=== PATIENT | female | born 1950 | race African-American/Black ===

== ENCOUNTER 2017-07-22 12:15 | Outpatient (CLI) | payer MEDICARE, MEDICAID ==
[2017-07-22 12:22] LABS: #Eosinphils 0.2 thou/uL (0.0-0.7); #Lymphocytes 2.8 thou/uL (1.20-3.40); #Monocytes 0.3 thou/uL (0.11-0.59); #Neutrophils 3.9 thou/uL (1.40-6.50); %Basophils 0.3 % (0.0-1.0); %Eosinophils 2.5 % (0.0-10.0); %Lymphocytes 38.9 % (21.0-51.0); %Monocytes 4.5 % (0.0-10.0); Mean Platelet Volume 7.7 fL (7.4-10.4); Red Blood Cell (RBC) Count 4.23 mill/uL (4.20-5.40); White Blood Cell (WBC) Count 7.3 thou/uL (4.8-10.8)
[2017-07-22 12:43] LABS: ALT (SGPT) 10 U/L (8-55); AST (SGOT) 12 U/L (5-34); Alkaline Phosphatase 120 U/L (40-150); Anion Gap 10 mmol/L (10-20); BUN (Urea Nitrogen) 15 mg/dL (9.8-20.1); Bilirubin, Total 0.4 mg/dL (0.2-1.2); Calc. Creatinine Clearance 0 mL/min (70-130); Calcium 9.3 mg/dL (7.8-10.44); Carbon Dioxide 30 mmol/L (23-31); Chloride 106 mmol/L (98-107); Estimated GFR-MDRD 52; Protein, Total 7.8 g/dL (6.0-8.3)
== END 2017-07-22 12:16 | disposition home or self-care (01) ==
LOC: LABBT 12:15
PROVIDERS: ATTEND Surgery
DX: Z01.812 Encounter for preprocedural laboratory examination (principal); K43.2 Incisional hernia without obstruction or gangrene
CPT/HCPCS: 80053; 85025; 93005; 93010

== ENCOUNTER 2017-07-27 07:30 | Day surgery (SDC) | payer MEDICARE, MEDICAID ==
[2017-07-22 11:08] VITALS: BMI 47.0
[2017-07-27] MEDS ORDERED: CEFAZOLIN/Water 2 GM/20 ML SYRINGE ONE (09:30)
[2017-07-27] MEDS ORDERED: Bupivacaine/Epinephrine 0.25% 30 ML VIAL ONE (09:39)
[2017-07-27] MEDS ORDERED: Fentanyl 100 MCG/2 ML VIAL ONE ×2 (09:45→12:09)
[2017-07-27] MEDS ORDERED: Midazolam HCl 2 mg/2 ml Vial ONE (09:45)
[2017-07-27] MEDS ORDERED: Fentanyl 250 MCG/5 ML VIAL ONE (09:45)
[2017-07-27] MEDS ORDERED: Albuterol Sulfate HFA (OR ONLY) ONE (10:13)
[2017-07-27] MEDS ORDERED: Promethazine HCl 25 MG/ML VIAL SLOW IVP PRN (10:40)
[2017-07-27] MEDS ORDERED: Meperidine HCl/PF 25 MG/ML VIAL SLOW IVP PRN (10:40)
[2017-07-27] MEDS ORDERED: Morphine 4 MG/ML VIAL ONE (14:17)
[2017-07-27] MEDS ORDERED: HYDROcodone/Acetaminophen 5/325 mg Tablet ONE (15:21)
[2017-07-27] MEDS ORDERED: Ondansetron HCl/PF 4 MG/2 ML Vial ONE (16:44)
[2017-07-27] MEDS ORDERED: Lidocaine 1% PF 5 ML VIAL ONE (16:44)
[2017-07-27] MEDS ORDERED: PHENYLEPHRINE-NS 100 MCG/ML 10 ML SYRINGE ONE (16:44)
[2017-07-27] MEDS ORDERED: Glycopyrrolate 0.2 MG/ML 5 ML SYRINGE ONE (16:44)
[2017-07-27] MEDS ORDERED: Propofol 200 MG/20 ML VIAL ONE (16:44)
[2017-07-27] MEDS ORDERED: Dexamethasone 20 MG/5 ML VIAL ONE (16:44)
--- NOTE | 2017-07-28 13:40 | OP ---
DATE OF PROCEDURE: 07/27/2017 PREOPERATIVE DIAGNOSIS: Ventral incisional hernia. POSTOPERATIVE DIAGNOSIS: Ventral incisional hernia. PROCEDURE: Laparoscopic [place] robot incisional hernia repair with mesh. SURGEON: Abdoulaye Burch M.D. ANESTHESIA: General. ESTIMATED BLOOD LOSS: Minimal. COMPLICATIONS: None. SPECIMEN: None. TECHNIQUE: The patient was taken to the operating room and placed supine on the table. After genera l anesthetic was obtained, a Espino was placed. The abdomen was shaved, prepped and draped in a steri le fashion. Left subcostal 12 mm Ethicon Optiview trocar was placed without injury and high-flow pne umoperitoneum was obtained. Left and right subcostal 8 mm robot trocars were placed under direct vis ualization. All ports were docked to the robot. Surgeon then goes to the console. The peritoneum w as opened starting at the 12 o'clock position and taken down to expose the posterior fascia. There we re 3 incisional hernias all within a row near the umbilicus. After the peritoneum was taken down all the way around to fully expose the fascia, an 0 V-Loc suture was used to close the fascia in a runni ng vertical nature. This completely closed the fascial defect. Next, a 9 cm Medtronic mesh was brou ght into the sterile field. It was hydrated, rolled, and placed in the abdominal cavity. The nonadh erent barrier was left down. The polypropylene was placed up against the posterior fascia. A bi-dir ectional double-armed Stratafix suture was used to sew it circumferentially all the way around to the posterior fascia. All needles were removed from the abdomen. All port sites were infiltrated using a local anesthetic. There is no ongoing bleeding in the abdomen. There is no injury to any intraab dominal structures. All port sites were infiltrated using local anesthetic and removed under direct visualization without bleeding. Pneumoperitoneum was let down. Vicryl had been used to close the fa scial defect at the 12-mm port site. Incisions were irrigated and closed using 4-0 Monocryl and Derm abond. The patient was en route to recovery in stable condition. All instrument counts, needle coun ts, and lap counts were correct.
== END 2017-07-27 16:08 | disposition home or self-care (01) ==
LOC: SDC 07:30
PROVIDERS: ATTEND Surgery
PROC: 0WUF4JZ Supplement Abdominal Wall with Synthetic Substitute, Percutaneous Endoscopic Approach (ICD-10-PCS; principal; 2017-07-27)
PROC: 8E0W4CZ Robotic Assisted Procedure of Trunk Region, Percutaneous Endoscopic Approach (ICD-10-PCS; 2017-07-27)
DX: K43.2 Incisional hernia without obstruction or gangrene (principal); E11.9 Type 2 diabetes mellitus without complications; E66.01 Morbid (severe) obesity due to excess calories; Z68.42 Body mass index [BMI] 45.0-49.9, adult; E03.9 Hypothyroidism, unspecified; M19.90 Unspecified osteoarthritis, unspecified site; Z79.4 Long term (current) use of insulin; Z79.82 Long term (current) use of aspirin; Z79.899 Other long term (current) drug therapy
CPT/HCPCS: 36416; 96374; J0131; J1100; J2001; J2250; J2270; J2405; J2704; J3010; J7620

== ENCOUNTER 2018-09-05 15:45 | Outpatient (CLI) | payer MEDICARE, OTHER | END 2018-09-05 15:46 | disposition home or self-care (01) | LOC: BICMAMMO 15:45 | PROVIDERS: ATTEND Family Medicine | DX: Z12.31 Encounter for screening mammogram for malignant neoplasm of breast (principal); R92.1 Mammographic calcification found on diagnostic imaging of breast | CPT/HCPCS: 77063; 77067 ==

== ENCOUNTER 2018-10-17 11:21 | Outpatient (CLI) | payer MEDICARE, OTHER ==
--- NOTE | 2018-10-17 14:49 | BD ---
DEXA BONE DENSITY STUDY: HISTORY: Postmenopausal. RIGHT FOREARM BMD (g/cm2) T-SCORE ONE-THIRD 0.717 +0.4 MID 0.560 -0.9 ULNAR DISTAL 0.387 -1.0 TOTAL 0.550 -0.5 LEFT FOREARM ULNAR DISTAL 0.469 +0.5 MID 0.620 +0.2 ONE THIRD 0.709 +0.2 TOTAL 0.597 +0.3 IMPRESSION: Normal bone mineral density of the forearms. POS: [facility]
== END 2018-10-17 11:22 | disposition home or self-care (01) ==
LOC: BICMAMMO 11:21
PROVIDERS: ATTEND Family Medicine
DX: Z13.820 Encounter for screening for osteoporosis (principal); M85.831 Other specified disorders of bone density and structure, right forearm
CPT/HCPCS: 77080

== ENCOUNTER 2018-10-31 14:49 | Emergency (ER) | payer MEDICARE, OTHER ==
[2018-10-31 15:28] LABS: #Eosinphils 0.3 thou/uL (0.0-0.7); #Lymphocytes 3.4 thou/uL (1.20-3.40); #Monocytes 0.5 thou/uL (0.11-0.59); #Neutrophils 4.2 thou/uL (1.40-6.50); %Basophils 0.6 % (0.0-1.0); %Eosinophils 3.4 % (0.0-10.0); %Lymphocytes 40.4 % (21.0-51.0); %Monocytes 5.7 % (0.0-10.0); Hemoglobin 12.9 g/dL (12.0-16.0); Mean Corpuscular HGB CONC 29.6 g/dL (32.0-36.0); Mean Corpuscular Hemoglobin 26.3 pg (27.0-31.0); Mean Corpuscular Volume 88.9 fL (78.0-98.0); Mean Platelet Volume 8.9 fL (7.4-10.4); Platelet Count 215 thou/uL (130-400); RBC Distribution Width 14.4 % (11.5-14.5); Red Blood Cell (RBC) Count 4.93 mill/uL (4.20-5.40); White Blood Cell (WBC) Count 8.4 thou/uL (4.8-10.8)
--- NOTE | 2018-10-31 15:37 | RAD ---
PREMA CHEST: Date: 10/31/18 HISTORY: Chest pain. FINDINGS: Lung aceves are clear. Heart and mediastinum unremarkable. IMPRESSION: No acute findings. POS: [facility]
[2018-10-31 15:41] LABS: Hypochromia SLIGHT = 6-15 cells (100X) (0-5/hpf); MDiff Complete? YES; Platelet Morphology Comment Appears Adequate
[2018-10-31 15:56] LABS: ALT (SGPT) 9 U/L (8-55); AST (SGOT) 13 U/L (5-34); Albumin 4.1 g/dL (3.4-4.8); Alkaline Phosphatase 125 U/L (40-150); Anion Gap 15 mmol/L (10-20); BUN (Urea Nitrogen) 17 mg/dL (9.8-20.1); Bilirubin, Total 0.6 mg/dL (0.2-1.2); CK (CPK) 111 U/L (29-168); Calc. Creatinine Clearance 0 mL/min (70-130); Calcium 9.7 mg/dL (7.8-10.44); Carbon Dioxide 32 mmol/L (23-31); Chloride 98 mmol/L (98-107); Estimated GFR-MDRD 40; Globulin 3.3 g/dL (2.4-3.5); Glucose 240 mg/dL (80-115); Potassium 3.7 mmol/L (3.5-5.1); Protein, Total 7.4 g/dL (6.0-8.3); Sodium 141 mmol/L (136-145)
== END 2018-10-31 15:59 | disposition home or self-care (01) ==
LOC: ERS 14:49
DX: R07.89 Other chest pain (principal); I10 Essential (primary) hypertension; E11.9 Type 2 diabetes mellitus without complications; F32.9 Major depressive disorder, single episode, unspecified; Z79.899 Other long term (current) drug therapy; Z79.4 Long term (current) use of insulin
CPT/HCPCS: 36415; 71045; 80053; 82550; 84484; 85025; 93005

== ENCOUNTER 2018-11-21 19:30 | Outpatient (CLI) | payer MEDICARE, OTHER | END 2018-11-21 19:31 | disposition home or self-care (01) | LOC: SLEEPLAB 19:30 | PROVIDERS: ATTEND Family Medicine | DX: G47.33 Obstructive sleep apnea (adult) (pediatric) (principal); R53.83 Other fatigue; E66.9 Obesity, unspecified; R06.83 Snoring; F41.8 Other specified anxiety disorders; I10 Essential (primary) hypertension; I25.10 Atherosclerotic heart disease of native coronary artery without angina pectoris; E11.9 Type 2 diabetes mellitus without complications | CPT/HCPCS: 95810 ==

== ENCOUNTER 2019-01-09 20:30 | Outpatient (CLI) | payer MEDICARE, MEDICAID | END 2019-01-09 20:31 | disposition home or self-care (01) | LOC: SLEEPLAB 20:30 | PROVIDERS: ATTEND Family Medicine | DX: G47.33 Obstructive sleep apnea (adult) (pediatric) (principal); G47.00 Insomnia, unspecified; R53.83 Other fatigue; F32.9 Major depressive disorder, single episode, unspecified; R06.83 Snoring; F41.9 Anxiety disorder, unspecified; I10 Essential (primary) hypertension; I25.10 Atherosclerotic heart disease of native coronary artery without angina pectoris; E11.9 Type 2 diabetes mellitus without complications; I49.3 Ventricular premature depolarization; E66.9 Obesity, unspecified; Z68.42 Body mass index [BMI] 45.0-49.9, adult | CPT/HCPCS: 95811 ==

== ENCOUNTER 2019-07-12 12:26 | Emergency (ER) | payer MEDICARE, MEDICAID ==
[2019-07-12 13:08] LABS: #Basophils 0.1 thou/uL (0.0-0.2); #Lymphocytes 2.2 thou/uL (1.20-3.40); #Monocytes 0.5 thou/uL (0.11-0.59); #Neutrophils 4.9 thou/uL (1.40-6.50); %Basophils 0.7 % (0.0-1.0); %Eosinophils 11.8 % (0.0-10.0); %Lymphocytes 25.4 % (21.0-51.0); %Monocytes 5.5 % (0.0-10.0); %Neutrophils 56.7 % (42.0-75.0); Hemoglobin 12.1 g/dL (12.0-16.0); Mean Corpuscular HGB CONC 31.2 g/dL (32.0-36.0); Mean Corpuscular Hemoglobin 27.8 pg (27.0-31.0); Mean Platelet Volume 8.4 fL (7.4-10.4); Platelet Count 207 thou/uL (130-400); RBC Distribution Width 13.8 % (11.5-14.5); Red Blood Cell (RBC) Count 4.37 mill/uL (4.20-5.40); White Blood Cell (WBC) Count 8.6 thou/uL (4.8-10.8)
[2019-07-12 13:37] LABS: ALT (SGPT) 14 U/L (8-55); AST (SGOT) 14 U/L (5-34); Albumin 3.9 g/dL (3.4-4.8); Alkaline Phosphatase 121 U/L (40-110); Anion Gap 11 mmol/L (10-20); BUN (Urea Nitrogen) 13 mg/dL (9.8-20.1); Bilirubin, Total 0.6 mg/dL (0.2-1.2); Calc. Creatinine Clearance 0 mL/min (70-130); Calcium 9.3 mg/dL (7.8-10.44); Carbon Dioxide 31 mmol/L (23-31); Chloride 104 mmol/L (98-107); Estimated GFR-MDRD 58; Globulin 3.7 g/dL (2.4-3.5); Glucose 286 mg/dL (80-115); Potassium 3.5 mmol/L (3.5-5.1); Protein, Total 7.6 g/dL (6.0-8.3); Sodium 142 mmol/L (136-145)
--- NOTE | 2019-07-12 14:30 | RAD ---
PA AND LATERAL CHEST: HISTORY: Chest pain. COMPARISON: 10/31/2018 FINDINGS: The heart size is normal. The lungs are expanded without focal areas of consolidation, pneumothoraces or pleural effusions. A small calcified granuloma in the right lower lung is again noted. There are degenerative changes in the spine. IMPRESSION: No radiographic evidence of acute cardiopulmonary process. POS: [facility]
== END 2019-07-12 17:15 | disposition home or self-care (01) ==
LOC: ERS 12:26
DX: J20.9 Acute bronchitis, unspecified (principal); E11.9 Type 2 diabetes mellitus without complications; I10 Essential (primary) hypertension; I25.10 Atherosclerotic heart disease of native coronary artery without angina pectoris; E03.9 Hypothyroidism, unspecified; Z79.4 Long term (current) use of insulin; Z79.899 Other long term (current) drug therapy
CPT/HCPCS: 36415; 71046; 80053; 85025; 87804; 94640; J7620

== ENCOUNTER 2019-07-14 05:12 | Inpatient (IN) | payer MEDICARE, MEDICAID ==
[2019-07-14] MEDS ORDERED: Albuterol Sulfate 2.5 mg/0.5 ml Neb ONE (05:58)
[2019-07-14] MEDS ORDERED: Albuterol Sulfate 1.25 MG/3 ML NEB ONE (06:41)
[2019-07-14] MEDS ORDERED: Albuterol Sulfate 2.5 mg/3 ml Neb ONE (06:49)
[2019-07-14] MEDS ORDERED: methylPREDNISolone Sod Succ/PF 125 MG/2 ML VIAL ONE (06:57)
[2019-07-14] MEDS ORDERED: Magnesium 2 GM/50 ML BAG (IN WATER) ONE (06:57)
[2019-07-14 07:26] LABS: #Basophils 0.1 thou/uL (0.0-0.2); #Eosinphils 0.9 thou/uL (0.0-0.7); #Lymphocytes 3.3 thou/uL (1.20-3.40); #Monocytes 0.7 thou/uL (0.11-0.59); #Neutrophils 6.6 thou/uL (1.40-6.50); %Basophils 0.6 % (0.0-1.0); %Eosinophils 8.1 % (0.0-10.0); %Lymphocytes 28.6 % (21.0-51.0); %Monocytes 6.1 % (0.0-10.0); %Neutrophils 56.6 % (42.0-75.0); Hemoglobin 12.2 g/dL (12.0-16.0); Mean Corpuscular Hemoglobin 27.8 pg (27.0-31.0); Mean Corpuscular Volume 89.6 fL (78.0-98.0); Mean Platelet Volume 8.3 fL (7.4-10.4); Platelet Count 239 thou/uL (130-400); RBC Distribution Width 13.9 % (11.5-14.5); Red Blood Cell (RBC) Count 4.38 mill/uL (4.20-5.40); White Blood Cell (WBC) Count 11.6 thou/uL (4.8-10.8)
[2019-07-14 07:40] LABS: ALT (SGPT) 14 U/L (8-55); AST (SGOT) 19 U/L (5-34); Alkaline Phosphatase 124 U/L (40-110); Anion Gap 12 mmol/L (10-20); BUN (Urea Nitrogen) 10 mg/dL (9.8-20.1); Bilirubin, Total 0.5 mg/dL (0.2-1.2); Calc. Creatinine Clearance 0 mL/min (70-130); Calcium 9.3 mg/dL (7.8-10.44); Carbon Dioxide 30 mmol/L (23-31); Chloride 104 mmol/L (98-107); Estimated GFR-MDRD 68; Globulin 3.8 g/dL (2.4-3.5); Glucose 118 mg/dL (80-115); Potassium 3.1 mmol/L (3.5-5.1); Protein, Total 7.8 g/dL (6.0-8.3); Sodium 143 mmol/L (136-145)
--- NOTE | 2019-07-14 07:56 | RAD ---
RADIOGRAPH CHEST 2 VIEWS: DATE: 07/14/2019 HISTORY: 69-year-old female with dyspnea FINDINGS: There is no airspace density, pulmonary edema, pleural effusion, pneumothorax, or cardiomegaly. IMPRESSION: No acute cardiopulmonary findings.
[2019-07-14 08:01] LABS: CKMB 4.3 ng/mL (0-6.6)
[2019-07-14] MEDS ORDERED: Furosemide 20 MG/2 ML VIAL ONE (08:17)
[2019-07-14] MEDS ORDERED: Nitroglycerin 2% Ointment 1 INCH/1 GM Packet ONE (08:17)
[2019-07-14] MEDS ORDERED: Aspirin Chewable 81 MG TAB ONE (09:37)
[2019-07-14 10:07] VITALS: BMI 45.8
[2019-07-14 10:58] LABS: Actual Bicarbonate (HCO3a) 26.9 mEq/L (22-28); Base Excess (BEa) 0.7 mEq/L (-2.0 to +3.0); CO2 Tension 49.7 mmHg (35.0-45.0); Calcium, Ionized 1.13 mmol/L (1.12-1.30); Carboxyhemoglobin (COHb) 0.9 gm% (0.0-3.0); Hemoglobin (Hb) 12.9 g/dL (12.0-16.0); O2 Tension (PaO2) 63.6 mmHg (> 80.0); Potassium - ABG Lab 3.08 mmol/L (3.70-5.30); pH, Arterial 7.35 (7.35-7.45)
[2019-07-14 11:06] LABS: ALV-art Gradient 24.005 (0-20); Puncture Site RRA
[2019-07-14] MEDS ORDERED: predniSONE 20 MG TAB PO SCH (11:30)
--- NOTE | 2019-07-14 11:50 | PDOC.FPRHP ---
- History of Present Illness Chief Complaint: SOB History of Present Illness: 69 y/o F with a pmhx of JACKIE, CAD, HTN, DM II insulin dependent, presented to the ED with worsening SOB. Pt states that for the past X2 weeks she has felt, "like something is wrong." She started off with SOB 2 weeks ago, by Wednesday decided to go to [facility] who dx pt with bronchitis and sinusitis. Pt was given Steroid shot, doxy for 10, tessalon pears, flonase days and a breathing treatment. The next Wed the pt was feeling worse. She had developed a cough with clear mucus production as well. Came to the ED at [facility], and sent home with an inhaler. Pt then came back today after her SOB became intolerable. Pt denies fever or chills. Pt states she has is unable to lay flat because of SOB, sleeping sitting up in recliner. Admits to exertional dyspnea of just a few steps, this also causes a tightness in her chest. Pt has a hx of CAD, last CATH about 5 years ago with stent placed. [employer] Certified Network Professional , Dr. Munguia. Mailing Jogger Dr. Stevens. ED course: Pt given Duonebs, 20 mg IV lasix, solu-medrol. - Allergies/Adverse Reactions Allergies Allergy/AdvReac Type Severity Reaction Status Date / Time levofloxacin [From Levaquin] Allergy Intermediate RASH, Verified 07/14/19 11:05 ITCHING codeine AdvReac Intermediate HALLUCINATI Verified 07/14/19 11:05 ONS - Home Medications Medication Instructions Recorded Confirmed Type Furosemide [Lasix] 40 mg PO BID 05/26/13 07/14/19 History Esomeprazole Magnesium [NexIUM] 40 mg PO DAILY 10/01/16 07/14/19 History Levothyroxine Sodium [Synthroid] 100 mcg PO DAILY 10/01/16 07/14/19 History Potassium Chloride [K-Dur] 10 meq PO DAILY 10/02/16 07/14/19 History HumaLOG 2.2 unit SC Q1HR 07/14/19 07/14/19 History Losartan/Hydrochlorothiazide 1 tab PO DAILY 07/14/19 07/14/19 History [Hyzaar 50/12.5] Rosuvastatin [Crestor] 40 mg PO HS 07/14/19 07/14/19 History Sertraline HCl 100 mg PO DAILY 07/14/19 07/14/19 History - History PMHx: DM II insulin dependent on pump, HTN, CAD s/p stent, JACKIE, Depression, PTSD , Hypothyroidism, GERD. PSHx: BTL, hysterectomy, cholecystectomy, X3 hernia repair. FHx: Mother: CAD, PR; Father: PR, CAD, CVA. Social: 10 pack year cigarette, total of 20 years, 1/2 ppd. Denies current etoh , or drug use. - Review of Systems General: denies: fever/chills, night sweats ENT: denies: nasal congestion, rhinorrhea Respiratory: reports: cough, congestion, shortness of breath, exercise intolerance Cardiovascular: reports: edema, paroxysmal nocturnal dyspnea, orthopnea. denies : chest pain, palpitation Gastrointestinal: denies: nausea, vomiting, diarrhea Genitourinary: denies: incontinence Skin: denies: rashes Musculoskeletal: denies: pain Neurological: denies: syncope, seizure - Vital signs BP: 188/84 HR: 92 RR: 25 Tmax: 98.4 Pox: 88% on RA, 96% on 2 L NC Wt: 124.9 kg - Physical Exam Constitutional: NAD, awake, alert and oriented, well developed HEENT: normocephalic and atraumatic, PERRLA, EOMI, conjunctiva clear, no scleral icterus, grossly normal vision, grossly normal hearing, MMM, oropharynx clear Neck: supple, FROM, trachea midline, no LAD, no JVD, no thyromegaly Chest: no-tender to palpation, no lesions Heart: RRR, normal S1/S2, no murmurs/rubs/gallops, pulses present, other (BLE pitting edema present up to knees) -Lungs: Diffuse expiratory wheezing and bibasilar crackles Mild resp distress, speaks in 3-4 word sentences. Much improved with O2 NC on. Abdomen: soft, non-tender, bowel sounds present Musculoskeletal: normal structure, normal tone, ROM grossly normal Neurological: no focal deficit, CN II-XII intact, normal sensation Skin: no rash/lesions, good turgor, capillary refill <2 seconds, no jaundice Heme/Lymphatic: no unusual bruising or bleeding, no purpura, no petechia, no LAD Psychiatric: normal mood and affect, good judgment and insight, intact recent and remote memory FMR H&P: Results - Labs Result Diagrams: 07/14/19 07:13 07/14/19 07:13 Lab results: WBC 11.6 thou/uL (4.8-10.8) H 07/14/19 07:13 Hgb 12.2 g/dL (12.0-16.0) 07/14/19 07:13 Hct 39.2 % (36.0-47.0) 07/14/19 07:13 MCV 89.6 fL (78.0-98.0) 07/14/19 07:13 Plt Count 239 thou/uL (130-400) 07/14/19 07:13 Neutrophils % 56.6 % (42.0-75.0) 07/14/19 07:13 ABG pH 7.35 (7.35-7.45) 07/14/19 10:55 ABG pCO2 49.7 mmHg (35.0-45.0) H 07/14/19 10:55 ABG pO2 63.6 mmHg (> 80.0) 07/14/19 10:55 Sodium 143 mmol/L (136-145) 07/14/19 07:13 Potassium 3.1 mmol/L (3.5-5.1) L 07/14/19 07:13 Chloride 104 mmol/L (98-107) 07/14/19 07:13 Carbon Dioxide 30 mmol/L (23-31) 07/14/19 07:13 BUN 10 mg/dL (9.8-20.1) 07/14/19 07:13 Creatinine 0.98 mg/dL (0.6-1.1) 07/14/19 07:13 Glucose 118 mg/dL (80-115) H 07/14/19 07:13 Calcium 9.3 mg/dL (7.8-10.44) 07/14/19 07:13 Total Bilirubin 0.5 mg/dL (0.2-1.2) 07/14/19 07:13 AST 19 U/L (5-34) 07/14/19 07:13 ALT 14 U/L (8-55) 07/14/19 07:13 Alkaline Phosphatase 124 U/L (40-110) H 07/14/19 07:13 CK-MB (CK-2) 4.3 ng/mL (0-6.6) 07/14/19 07:13 B-Natriuretic Peptide 18.3 pg/mL (0-100) 07/14/19 07:13 Serum Total Protein 7.8 g/dL (6.0-8.3) 07/14/19 07:13 Albumin 4.0 g/dL (3.4-4.8) 07/14/19 07:13 - EKG Interpretation EKG: Sinus tach 102 - Radiology Interpretation Chest x-ray Status: report reviewed by me (no acute cardiopulmonary findings) FMR H&P: A/P - Problem List (1) Acute respiratory failure with hypoxia Current Visit: Yes Status: Acute Code(s): J96.01 - ACUTE RESPIRATORY FAILURE WITH HYPOXIA (2) JACKIE (obstructive sleep apnea) Current Visit: Yes Status: Chronic Code(s): G47.33 - OBSTRUCTIVE SLEEP APNEA (ADULT) (PEDIATRIC) (3) HTN (hypertension) Current Visit: Yes Status: Chronic Code(s): I10 - ESSENTIAL (PRIMARY) HYPERTENSION (4) Hypothyroidism Current Visit: Yes Status: Chronic Code(s): E03.9 - HYPOTHYROIDISM, UNSPECIFIED (5) Presence of stent in coronary artery in patient with coronary artery disease Current Visit: Yes Status: Chronic Code(s): I25.10 - ATHSCL HEART DISEASE OF [place] CORONARY ARTERY W/O ANG PCTRS; Z95.5 - PRESENCE OF CORONARY ANGIOPLASTY IMPLANT AND GRAFT (6) Diabetes mellitus, type II, insulin dependent Current Visit: Yes Status: Chronic Code(s): E11.9 - TYPE 2 DIABETES MELLITUS WITHOUT COMPLICATIONS; Z79.4 - CUSTODIAL (CURRENT) USE OF INSULIN (7) GERD (gastroesophageal reflux disease) Current Visit: Yes Status: Chronic Code(s): K21.9 - GASTRO-ESOPHAGEAL REFLUX DISEASE WITHOUT ESOPHAGITIS (8) Depression Current Visit: Yes Status: Chronic Code(s): F32.9 - MAJOR DEPRESSIVE DISORDER, SINGLE EPISODE, UNSPECIFIED - Plan 69 y/o F admitted to [facility] for acute hypoxic respiratory failure further workup and evaluation. 1. Acute Hypoxic Respiratory Failure - Most likely secondary to Chronic JACKIE causing Pulmonary manifestation - 88% on RA in ED upon initial evaluation. - Improved on 2 L NC to 96% - Ordered Echo - Pt clinically volume overloaded, will order IV lasix. - Given 20 IV lasix in ED. - strict I/O, Weight daily 2. Elevated Troponins, indeterminate - Trop 0.058--> 0.030--> 0.049 - echo pending - likely due to volume status clinically and stretch of myocytes. 3. JACKIE - Diagnosed this summer, but pt has not received her CPAP machine yet. - Will order CPAP nightly. - possible Pulmonary HTN leading to respiratory failure or worsening dyspnea on exertion - Will obtain ABG when pt reaches baseline respiratory status. 4. CAD hx - S/P stenting X5 years ago. - Continue Rosuvastatin 40 mg daily - Start ASA 81 mg daily. - Will start B-diamond at discharge - Pt has home med of Furosemide 40 mg daily. Unsure why, and no prior diagnosis of CHF. 5. HTN - BP 188/84 in ED - Continue home meds of Losartan/HCTZ 50/12.5 - Q4 Vitals 6. DM II, Insulin dependent - Continue use of insulin device - Per pt A1C's have been around 7. - Blood Glucose well managed at home with insulin device. 7. Hypothyroidism - Continue home dose of synthroid 100 mcg daily - Ordered TSH 8. Depression - Continue home sertraline 100 mg daily. 9. GERD - Continue home PPI Code Status: Full code Diet: HH, CC DVT ppx: Lovenox Dispo: stable, admit to tele obs for further eval and treatment. Echo pending, possible new onset CHF vs other cardio/pulmonary etiology. FMR H&P: Upper Level - Pertinent history 69 year old female with PMH JACKIE (untreated), IDDM, HTN, CAD s/p stents x2 that presents due to generally not feeling well and gradually worsening shortness of breath associated with lower extremity swelling over the last two weeks. Patient has also developed a cough productive of green sputum. Patient does not have a documented history of CHF or COPD. She was recently diagnosed with sleep apnea but has been unable to get the supplies due to paperwork issues. Patient unable to walk several feet without getting short of breath. She is unable to lay flat. Patient was seen 10 days ago in ED. She was given a steroid shot and started on doxycycline for 10 days for treatment of sinusitis and bronchitis. She has not made any improvement since initiation of antibiotics. Patient was seen back in the ED 2 days ago and given an inhaler. Patient's shortness of breath today was intolerable, and now she is requiring oxygen to maintain her sats. Patient denies fever or chills. Patient's last cath was 5 years ago at which time stents were placed. Her primary building wrecker is Dr. Munguia. - Pertinent findings General: Alert and oriented, sitting at bedside. Appears short of breath with NC in place. HEENT: MMM. Card: Distant heart sounds. No appreciable murmur. RRR. Mild respiratory distress when talking. Having to take breath in between words. Resp: Wheezing diffusely throughout, particularly anteriorly. Very decreased breath sounds throughout. Ext: 1+ pitting edema of lower extremities. Skin: No obvious lesions or rashes. - Plan Date/Time: 07/14/19 1146 I, Winter Arevalo, have evaluated this patient and agree with findings/plan as outlined by fashion buying internship resident. Pertinent changes/additions are listed here. Acute hypoxic respiratory failure - 2/2 possible new onset CHF, JACKIE related pulmonary HTN (suspected), or COPD - Patient with no previously documented diagnosis of CHF or COPD - Patient recently diagnosed with sleep apnea; she has been unable to obtain supplies so remains untreated - Room air ABG after 10 minutes: pH 7.35/37.9/63.6; patient requiring 2L NC to maintain sats >90% - Echo pending - IV lasix for diuresis - CPAP/BiPAP at night - Duonebs q4h, PRN q2h - Will initiate course of steroids Suspect pulmonary HTN related to untreated and long standing JACKIE - May be contributing to current symptoms - BiPAP/CPAP at night - Echo pending (may give some insight into pulmonary HTN diagnosis) - Would benefit from seeing business information consultant outpatient if not already established Possible new onset HF - Given risk factors and body habitus, possible symptoms may be related to HF - Continue diuresis - Echo pending - Cardiology consult if evidence of heart failure Possible COPD exacerbation - 10 year smoking history; quit 10 years ago - Wheezing on exam - Will start course of steroids - Duonebs scheduled and PRN CAD s/p CABG - S/P stenting X5 years ago. - Continue Rosuvastatin 40 mg daily - Start ASA 81 mg daily - Will start B-diamond at discharge - Pt has home med of Furosemide 40 mg daily. Unsure why, and no prior diagnosis of CHF. HTN - BP 188/84 in ED - Continue home meds of Losartan/HCTZ 50/12.5 DM II, Insulin dependent - Continue use of insulin device - Will obtain HgA1c - Blood Glucose well managed at home with insulin device. Hypothyroidism - Continue home dose of synthroid 100 mcg daily - TSH pending Depression - Continue home sertraline 100 mg daily. GERD - Continue home PPI
[2019-07-14] MEDS ORDERED: Aspirin 81 mg Enteric Coated Tablet PO SCH (12:00)
[2019-07-14] MEDS ORDERED: HumaLOG 300 UNITS/3 ML VIAL SC PRN (12:00)
[2019-07-14] MEDS ORDERED: Furosemide 20 MG/2 ML VIAL SLOW IVP SCH (12:15)
[2019-07-14 13:56] LABS: Troponin I 0.049 ng/mL (< 0.028)
--- NOTE | 2019-07-14 17:15 | HP ---
HISTORY OF PRESENT ILLNESS: I have examined the patient. I have discussed the case with Dr. Shanelle Graff and agree with her assessment and plan. Briefly, Ms. Moreau is a pleasant 69-year-old obese black female with obstructive sleep apnea. She presents with a 2-week history of paroxysmal nocturnal dyspnea, orthopnea, and dyspnea on exertion. She has no prior history of heart failure or COPD, but she does have JACKIE. In the event, she has been worked up for further management and diagnosis with treatment. PHYSICAL EXAMINATION: VITAL SIGNS: Her blood pressure was initially 184/87. She is afebrile. Her pulse rate was 86 and regular. GENERAL: She is awake, alert, no distress currently. She has had a brisk diuresis. EAR, NOSE, AND THROAT: No erythema or exudate. NECK: Supple. No JVD. CARDIAC: Heart rhythm regular, S4 apical gallop. No murmur or rub noted. LUNGS: Clear with few basilar rales. No respiratory distress currently. ABDOMEN: Flat and soft. EXTREMITIES: Trace edema. NEUROLOGIC: No focal deficits. LABORATORY DATA: CBC; white count was 11,600, hemoglobin was 12.2, hematocrit 39.2. Her initial chemistry; sodium 143, potassium 3.1, chloride 104, bicarb 30, BUN 10, creatinine 0.98, glucose is 118. Her troponins were indeterminate ranging from 0.03 to 0.058. Liver enzymes were normal. A blood gas after 10 minutes on room air showed a pH of 7.35, a pCO2 of 49.7, and a pO2 of 63.6. I would repeat this in several days when she is more clinically stable and allow her to be without O2 for at least 30 minutes. ASSESSMENT AND COMMENT: Given that she only has an approximately 10 pack-year history of smoking, I doubt that she has chronic obstructive pulmonary disease. She certainly could have heart failure and we will await the results of the echo. However, she does have obstructive sleep apnea and this may represent pulmonary hypertension secondary to a long-standing obstructive sleep apnea which has not been treated thus far. In the event, we will continue management and workup and adjust our treatment accordingly. Job ID: [id number]
[2019-07-14] MEDS ORDERED: Potassium Chloride 20 MEQ TAB PO SCH (18:15)
[2019-07-14] MEDS: Rosuvastatin 20 MG TAB PO SCH (20:56)
[2019-07-14] MEDS ORDERED: Furosemide 40 MG TAB PO SCH (21:00)
[2019-07-15] MEDS ORDERED: Albuterol Sulfate 2.5 mg/3 ml Neb NEB SCH (04:45)
--- NOTE | 2019-07-15 05:49 | PDOC.FM ---
- Subjective Subjective: Patient doing well this morning, was sleeping well with the cpap. Reports that her SOB has improved with use of the CPAP. Denies chest pain. Endorses a continued cough. - Objective Vital Signs & Weight: Vital Signs (12 hours) Temp Pulse Resp BP BP Pulse Ox 07/15/19 04:56 55 L 23 H 07/15/19 04:20 70 18 165/72 H 97 07/15/19 01:32 22 H 07/14/19 23:57 98.7 F 68 20 161/74 H 99 07/14/19 21:36 69 21 H 98 07/14/19 21:35 69 21 H 98 07/14/19 19:55 97.0 F L 94 20 166/95 H 97 07/14/19 17:55 87 192/85 H Weight Weight 124.919 kg I&O: 07/13/19 07/14/19 07/15/19 06:59 06:59 06:59 Intake Total 720 Output Total 400 Balance 320 Result Diagrams: 07/15/19 06:12 07/15/19 06:13 EKG Reviewed by me: Yes (sinus 50s-60s) Phys Exam - Physical Examination Constitutional: NAD HEENT: moist MMs, sclera anicteric Neck: supple, full ROM expiratory wheezing throughout all lung aceves Cardiovascular: RRR, no significant murmur Gastrointestinal: soft, non-tender Musculoskeletal: pulses present 1+ non-pitting edema BLE Neurological: normal sensation, moves all 4 limbs Psychiatric: normal affect, A&O x 3 Skin: no rash, normal turgor Dx/Plan (1) Acute respiratory failure with hypoxia Code(s): J96.01 - ACUTE RESPIRATORY FAILURE WITH HYPOXIA Status: Acute (2) Depression Code(s): F32.9 - MAJOR DEPRESSIVE DISORDER, SINGLE EPISODE, UNSPECIFIED Status : Chronic (3) Diabetes mellitus, type II, insulin dependent Code(s): E11.9 - TYPE 2 DIABETES MELLITUS WITHOUT COMPLICATIONS; Z79.4 - GAUGE MAKER APPRENTICE (CURRENT) USE OF INSULIN Status: Chronic (4) GERD (gastroesophageal reflux disease) Code(s): K21.9 - GASTRO-ESOPHAGEAL REFLUX DISEASE WITHOUT ESOPHAGITIS Status: Chronic (5) HTN (hypertension) Code(s): I10 - ESSENTIAL (PRIMARY) HYPERTENSION Status: Chronic (6) Hypothyroidism Code(s): E03.9 - HYPOTHYROIDISM, UNSPECIFIED Status: Chronic (7) JACKIE (obstructive sleep apnea) Code(s): G47.33 - OBSTRUCTIVE SLEEP APNEA (ADULT) (PEDIATRIC) Status: Chronic - Plan Plan: 69 y/o F admitted to [facility] obs for acute hypoxic respiratory failure #Acute Hypoxic Respiratory Failure - Most likely secondary to Chronic JACKIE causing Pulmonary manifestation - Possibly due to COPD exacerbation vs CHF exacerbation -BNP 18 -No past dx of COPD, though patient has smoking hx - 88% on RA in ED upon initial evaluation. Improved on 2 L NC to 96% - Patient reported improved SOB with CPAP and duonebs overnight - Echo pending, will consider cards consult if it shows new-onset CHF - Pt on PO lasix at home, started on IV lasix. - strict I/O, Weight daily - procal 0.05, neg #Elevated Troponins, indeterminate - Trop 0.058--> 0.030--> 0.049 - echo pending - likely due to volume overload - continue IV lasix #JACKIE - Diagnosed this summer, but pt has not received her CPAP machine yet. - CPAP nightly while in the hospital, patient reports it has improved her SOB - possible Pulmonary HTN leading to respiratory failure or worsening dyspnea on exertion - Consider ABG when pt reaches baseline respiratory status. #Possible COPD exacerbation - 10 year smoking history; quit 10 years ago - Expiratory wheezing throughout all lung aceves on exam - Started on course of steroids - Duonebs scheduled and PRN #Possible CHF exacerbation - elevated troponins, likely due to fluid overload - BNP 18 - echo pending - will consider cards consult if new-onset CHF #CAD hx - S/P stenting X5 years ago. - Continue Rosuvastatin 40 mg daily - Start ASA 81 mg daily. - Consider starting B-diamond at discharge #HTN - BP 188/84 in ED, was hypertensive overnight, though home meds not re-started until 07/15 - Continue home meds of Losartan/HCTZ 50/12.5, will monitor and consider adding additional medication as needed - Q4 Vitals #DM II, Insulin dependent - Continue use of insulin pump device - Per pt A1C's have been around 7. - Blood Glucose well managed at home with insulin pump #Hypothyroidism - Continue home dose of synthroid 100 mcg daily - TSH 0.96 #Depression - Continue home sertraline 100 mg daily. #GERD - Continue home PPI Code Status: Full code Diet: HH, CC DVT ppx: Lovenox Dispo: admitted to tele obs for further eval and treatment. Echo pending, possible new onset CHF vs other cardio/pulmonary etiology. If echo neg consider COPD exacerbation vs JACKIE. Monitor respiratory status throughout the day on duonebs/cpap while sleeping Addendum - Attending - Attending Attestation Date/Time: 07/15/19 2135 I personally evaluated the patient and discussed the management with Dr. Barton. I agree with the History, Examination, Assessment and Plan documented above with any addition or exceptions noted below. Patient here with dyspnea and concern for HF unknown subtype or bronchitis. She continues on respiratory support and symptomatic treatment. Awaiting echo. BNP very low so I would expect diastolic dysfunction versus R sided failure if present. Continue treatment for now and further mgmt per Echo result. She is doing somewhat better today.
[2019-07-15 06:28] LABS: #Eosinphils 0.1 thou/uL (0.0-0.7); #Lymphocytes 2.4 thou/uL (1.20-3.40); #Monocytes 0.7 thou/uL (0.11-0.59); #Neutrophils 9.1 thou/uL (1.40-6.50); %Basophils 0.3 % (0.0-1.0); %Eosinophils 0.7 % (0.0-10.0); %Lymphocytes 19.4 % (21.0-51.0); %Monocytes 5.9 % (0.0-10.0); %Neutrophils 73.7 % (42.0-75.0); Mean Corpuscular HGB CONC 31.4 g/dL (32.0-36.0); Mean Corpuscular Hemoglobin 27.8 pg (27.0-31.0); Mean Corpuscular Volume 88.5 fL (78.0-98.0); Mean Platelet Volume 8.4 fL (7.4-10.4); Platelet Count 244 thou/uL (130-400); RBC Distribution Width 13.9 % (11.5-14.5); Red Blood Cell (RBC) Count 3.97 mill/uL (4.20-5.40); White Blood Cell (WBC) Count 12.3 thou/uL (4.8-10.8)
[2019-07-15 06:53] LABS: Anion Gap 9 mmol/L (10-20); BUN (Urea Nitrogen) 13 mg/dL (9.8-20.1); Calc. Creatinine Clearance 109 mL/min (70-130); Carbon Dioxide 35 mmol/L (23-31); Chloride 100 mmol/L (98-107); Estimated GFR-MDRD 68; Glucose 212 mg/dL (80-115); Potassium 3.5 mmol/L (3.5-5.1); Sodium 140 mmol/L (136-145)
[2019-07-15] MEDS ORDERED: Furosemide 40 MG/4 ML VIAL SLOW IVP SCH (09:00)
[2019-07-15] MEDS: Levothyroxine Sodium 100 MCG TAB PO SCH (09:13)
[2019-07-15] MEDS: Potassium Chloride 10 MEQ TAB PO SCH (09:16)
[2019-07-15] MEDS: predniSONE 20 MG TAB PO SCH (09:16)
[2019-07-15] MEDS: Enoxaparin Sodium 40 MG/0.4 ML SYRINGE SC SCH (09:16)
[2019-07-15] MEDS: Aspirin 81 mg Enteric Coated Tablet PO SCH (09:16)
[2019-07-15] MEDS: Furosemide 40 MG TAB PO SCH ×2 (10:28→15:16)
[2019-07-15] MEDS: Rosuvastatin 20 MG TAB PO SCH (20:49)
--- NOTE | 2019-07-16 05:21 | PDOC.FM ---
- Subjective Subjective: Patient doing well this morning. Took CPAP off while talking with me this morning, and O2 Sat was maintained 94-99% on RA until she started to cough continuously and dropped to 88% at that time, then re-bounded back to mid-90s. Patient reports that when she had similar symptoms in the past, she was prescribed amoxicillin and spiriva and that helped her greatly. Discussed with patient that we will see how she does off of oxygen today and possibly discharge later this afternoon. Also discussed that we are increasing her HTN medication dosage due to her high BP. Patient agreeable to plan of care. - Objective Vital Signs & Weight: Vital Signs (12 hours) Temp Pulse Resp BP BP Pulse Ox 07/16/19 03:44 97 07/16/19 00:34 180/78 H 07/16/19 00:07 97 07/16/19 00:05 97 07/15/19 23:30 98.7 F 56 L 20 184/77 H 99 07/15/19 19:37 98.7 F 67 18 137/65 100 07/15/19 19:35 20 95 Weight Weight 124.693 kg I&O: 07/14/19 07/15/19 07/16/19 06:59 06:59 06:59 Intake Total 720 650 Output Total 400 Balance 320 650 Result Diagrams: 07/15/19 06:12 07/15/19 06:13 EKG Reviewed by me: Yes (sinus, at times sinus hue in 50s while asleep) Phys Exam - Physical Examination Constitutional: NAD HEENT: moist MMs, sclera anicteric Neck: supple, full ROM expiratory wheezing throughout, improved inspiration from yesterday Cardiovascular: RRR, no significant murmur Gastrointestinal: soft, non-tender Musculoskeletal: pulses present 1+ non-pitting edema BLE Neurological: normal sensation, moves all 4 limbs Psychiatric: normal affect, A&O x 3 Skin: no rash, normal turgor Dx/Plan (1) Acute respiratory failure with hypoxia Code(s): J96.01 - ACUTE RESPIRATORY FAILURE WITH HYPOXIA Status: Acute (2) Depression Code(s): F32.9 - MAJOR DEPRESSIVE DISORDER, SINGLE EPISODE, UNSPECIFIED Status : Chronic (3) Diabetes mellitus, type II, insulin dependent Code(s): E11.9 - TYPE 2 DIABETES MELLITUS WITHOUT COMPLICATIONS; Z79.4 - INTERMEDIATE (CURRENT) USE OF INSULIN Status: Chronic (4) GERD (gastroesophageal reflux disease) Code(s): K21.9 - GASTRO-ESOPHAGEAL REFLUX DISEASE WITHOUT ESOPHAGITIS Status: Chronic (5) HTN (hypertension) Code(s): I10 - ESSENTIAL (PRIMARY) HYPERTENSION Status: Chronic (6) Hypothyroidism Code(s): E03.9 - HYPOTHYROIDISM, UNSPECIFIED Status: Chronic (7) JACKIE (obstructive sleep apnea) Code(s): G47.33 - OBSTRUCTIVE SLEEP APNEA (ADULT) (PEDIATRIC) Status: Chronic - Plan Plan: 69 y/o F admitted to [facility] obs for acute hypoxic respiratory failure #Acute Hypoxic Respiratory Failure - Most likely secondary to Chronic JACKIE causing Pulmonary manifestation - Possibly due to COPD exacerbation -No past dx of COPD, though patient has smoking hx - Patient reported improved SOB with CPAP and duonebs overnight, spiriva has worked for patient in the past and can consider this on discharge - Echo demonstrated diastolic dysfunction - strict I/O, Weight daily - procal 0.05, neg #Elevated Troponins, indeterminate - Trop 0.058--> 0.030--> 0.049 - echo demonstrated diastolic dysfunction; likely 2/2 fluid overload - continue home PO lasix #JACKIE - Diagnosed this summer, but pt has not received her CPAP machine yet. - CPAP nightly while in the hospital, patient reports it has improved her SOB - Message sent to clinic provider to try to help patient get her CPAP outpatient #Possible COPD exacerbation - 10 year smoking history; quit 10 years ago - Expiratory wheezing throughout all lung aceves on exam, improved from yesterday - Started on course of steroids, today continue - Duonebs scheduled and PRN - Recommend PFT outpatient - Consider sending in script for Spirva on discharge #HFpEF - elevated troponins, likely due to fluid overload - BNP 18 - echo: -E/A flow reversal suggestive of diastolic dysfunction -normal R ventricle size/function -normal L atrium size -normal R atrium size -trace mitral regurgitation -structurally normal aortic valve -mild tricuspid regurgitation -mild pulmonary regurgitation - will continue home lasix and attempt to control patient's HTN by increasing home HTN medication dosage #CAD hx - S/P stenting X5 years ago. - Continue Rosuvastatin 40 mg daily - Start ASA 81 mg daily. #HTN - BP 188/84 in ED, was hypertensive overnight, though home meds not re-started until 07/15 - Increase home med dosing of Losartan/HCTZ to 100/25 - Q4 Vitals #DM II, Insulin dependent - Continue use of insulin pump device - Per pt A1C's have been around 7. - Blood Glucose well managed at home with insulin pump #Hypothyroidism - Continue home dose of synthroid 100 mcg daily - TSH 0.96 #Depression - Continue home sertraline 100 mg daily. #GERD - Continue home PPI Code Status: Full code Diet: HH, CC DVT ppx: Lovenox Dispo: admitted to tele obs for further eval and treatment. Echo demonstrated HFpEF. Continue steroids, continue breathing treatments. Will observe respiratory status throughout the morning on RA and possible d/c this afternoon. Addendum - Attending - Attending Attestation Date/Time: 07/16/19 6727 I personally evaluated the patient and discussed the management with Dr. Barton. I agree with the History, Examination, Assessment and Plan documented above with any addition or exceptions noted below. Patient reports continued improvement in symptoms. Her echo did not show systolic heart failure. Suspect her presentation was due to a combined untreated JACKIE and acute bronchitis with bronchospasm. Continue symptomatic treatment. Increase ambulation. Anticipate hopeful discharge in the coming 1-2 days. Mucinex for symptom relief and back down to home diuretic regimen. BP control.
[2019-07-16] MEDS: Levothyroxine Sodium 100 MCG TAB PO SCH (05:22)
[2019-07-16] MEDS ORDERED: hydrALAZINE 25 MG TAB PO SCH (06:00)
[2019-07-16] MEDS: Enoxaparin Sodium 40 MG/0.4 ML SYRINGE SC SCH (08:37)
[2019-07-16] MEDS: predniSONE 20 MG TAB PO SCH (08:38)
[2019-07-16] MEDS: Furosemide 40 MG TAB PO SCH (08:38)
[2019-07-16] MEDS: Losartan/Hydrochlorothiazide 100 mg/25 mg Tablet PO SCH (08:38)
[2019-07-16] MEDS: Potassium Chloride 10 MEQ TAB PO SCH (08:38)
[2019-07-16] MEDS: Aspirin 81 mg Enteric Coated Tablet PO SCH (08:38)
[2019-07-16] MEDS: guaiFENesin/DM ER PO SCH ×2 (09:20→20:40)
[2019-07-16] MEDS: Rosuvastatin 20 MG TAB PO SCH (20:40)
[2019-07-17] MEDS: Levothyroxine Sodium 100 MCG TAB PO SCH (05:52)
--- NOTE | 2019-07-17 05:53 | PDOC.FM ---
- Subjective Subjective: Pt states she has much improved and "feels ready to go home." Receiving nebulizer treatment upon entry to room. Pt states she is getting a nebulizer machine upon discharge, as well as CPAP machine. - Objective MAR Reviewed: Yes Vital Signs & Weight: Vital Signs (12 hours) Temp Pulse Resp BP BP Pulse Ox 07/17/19 04:01 98.8 F 76 16 144/60 H 97 07/17/19 03:37 98 07/17/19 03:05 98 07/16/19 23:51 98.2 F 76 24 H 162/66 H 95 07/16/19 23:35 93 L 07/16/19 20:45 154/68 H 07/16/19 20:36 98.9 F 80 20 186/75 H 96 07/16/19 19:41 93 L 07/16/19 19:39 93 L Weight Weight 125.282 kg I&O: 07/15/19 07/16/19 07/17/19 06:59 06:59 06:59 Intake Total 720 650 440 Output Total 400 Balance 320 650 440 Result Diagrams: 07/15/19 06:12 07/15/19 06:13 Phys Exam - Physical Examination Constitutional: NAD HEENT: moist MMs, sclera anicteric Neck: no nodes, full ROM Respiratory: no wheezing, no rales, no rhonchi, clear to auscultation bilateral Cardiovascular: RRR, no significant murmur, no rub Gastrointestinal: soft, no distention, positive bowel sounds Musculoskeletal: pulses present, edema present (trace BLE ) Neurological: non-focal, moves all 4 limbs Psychiatric: normal affect, A&O x 3 Skin: no rash, normal turgor, cap refill <2 seconds Dx/Plan (1) Acute respiratory failure with hypoxia Code(s): J96.01 - ACUTE RESPIRATORY FAILURE WITH HYPOXIA Status: Acute (2) JACKIE (obstructive sleep apnea) Code(s): G47.33 - OBSTRUCTIVE SLEEP APNEA (ADULT) (PEDIATRIC) Status: Chronic (3) HTN (hypertension) Code(s): I10 - ESSENTIAL (PRIMARY) HYPERTENSION Status: Chronic (4) Hypothyroidism Code(s): E03.9 - HYPOTHYROIDISM, UNSPECIFIED Status: Chronic (5) Presence of stent in coronary artery in patient with coronary artery disease Code(s): I25.10 - ATHSCL HEART DISEASE OF [place] CORONARY ARTERY W/O ANG PCTRS; Z95.5 - PRESENCE OF CORONARY ANGIOPLASTY IMPLANT AND GRAFT Status: Chronic (6) Diabetes mellitus, type II, insulin dependent Code(s): E11.9 - TYPE 2 DIABETES MELLITUS WITHOUT COMPLICATIONS; Z79.4 - [employer]ES (CURRENT) USE OF INSULIN Status: Chronic (7) GERD (gastroesophageal reflux disease) Code(s): K21.9 - GASTRO-ESOPHAGEAL REFLUX DISEASE WITHOUT ESOPHAGITIS Status: Chronic (8) Depression Code(s): F32.9 - MAJOR DEPRESSIVE DISORDER, SINGLE EPISODE, UNSPECIFIED Status : Chronic - Plan Plan: 69 y/o F admitted to [facility] obs for acute hypoxic respiratory failure #Acute Hypoxic Respiratory Failure - Most likely secondary to Chronic JACKIE causing Pulmonary manifestation vs. COPD exacerbation (COPD less likely <10 pack year hx cigarettes) - Patient reported improved SOB with CPAP and duonebs overnight, [employer]go[employer] has worked for patient in the past. Combivent upon discharge. - Echo demonstrated diastolic dysfunction - strict I/O, Weight daily - procal 0.05, neg #Elevated Troponins, indeterminate - Trop 0.058--> 0.030--> 0.049 - echo demonstrated diastolic dysfunction; likely 2/2 fluid overload - continue home PO lasix #JACKIE - Diagnosed this summer, but pt has not received her CPAP machine yet. - CPAP nightly while in the hospital, patient reports it has improved her SOB - Message sent to clinic provider to try to help patient get her CPAP outpatient #Possible COPD exacerbation - 10 year smoking history; quit 10 years ago - Expiratory wheezing throughout all lung aceves on exam, improved from yesterday - Started on course of steroids, today continue for total of 5 days. - Duonebs scheduled and PRN - Recommend PFT outpatient - Combivent on discharge #HFpEF - elevated troponins, likely due to fluid overload - BNP 18 - echo: -E/A flow reversal suggestive of diastolic dysfunction -normal R ventricle size/function -normal L atrium size -normal R atrium size -trace mitral regurgitation -structurally normal aortic valve -mild tricuspid regurgitation -mild pulmonary regurgitation - will continue home lasix and attempt to control patient's HTN by increasing home HTN medication dosage #CAD hx - S/P stenting X5 years ago. - Continue Rosuvastatin 40 mg daily - Start ASA 81 mg daily. #HTN - BP 188/84 in ED, was hypertensive overnight, though home meds not re-started until 07/15 - Increase home med dosing of Losartan/HCTZ to 100/25 - Q4 Vitals #DM II, Insulin dependent - Continue use of insulin pump device - Per pt A1C's have been around 7. - Blood Glucose well managed at home with insulin pump #Hypothyroidism - Continue home dose of synthroid 100 mcg daily - TSH 0.96 #Depression - Continue home sertraline 100 mg daily. #GERD - Continue home PPI Code Status: Full code Diet: HH, CC DVT ppx: Lovenox Dispo: Stable, improved, consider discharge home today. Addendum - Attending - Attending Attestation Date/Time: 07/17/19 6622 I personally evaluated the patient and discussed the management with Dr. Graff. I agree with the History, Examination, Assessment and Plan documented above with any addition or exceptions noted below. Patient doing well. Stable for discharge and outpatient follow up.
[2019-07-17] MEDS: predniSONE 20 MG TAB PO SCH (08:29)
[2019-07-17] MEDS: guaiFENesin/DM ER PO SCH (08:30)
[2019-07-17] MEDS: Enoxaparin Sodium 40 MG/0.4 ML SYRINGE SC SCH (08:30)
[2019-07-17] MEDS: Potassium Chloride 10 MEQ TAB PO SCH (08:30)
[2019-07-17] MEDS: Aspirin 81 mg Enteric Coated Tablet PO SCH (08:30)
[2019-07-17] MEDS: Losartan/Hydrochlorothiazide 100 mg/25 mg Tablet PO SCH (08:30)
[2019-07-17] MEDS ORDERED: Furosemide 40 MG TAB PO SCH (09:00)
[2019-07-17 12:05] VITALS: BP 159/70; TEMP 98.5
--- NOTE | 2019-07-18 08:32 | DIS ---
DATE OF ADMISSION: 07/16/2019 DATE OF DISCHARGE: 07/17/2019 RESIDENT: Shanelle Graff DO ADMITTING ATTENDING: Mart Yoo MD. DISCHARGE ATTENDING: Arthur Harkins MD. CONSULTS: Case Management. PROCEDURE: Echocardiogram EF of 60% to 65%, suggestive of diastolic dysfunction. Flow reversal. Mild tricuspid regurg. Mild colonic regurg present. DIAGNOSES: 1. Acute hypoxic respiratory failure. 2. Elevated troponins, indeterminate. 3. Obstructive sleep apnea. 4. Possible chronic obstructive pulmonary disease versus chronic bronchitis. 5. Heart failure with preserved ejection fraction. 6. Coronary artery disease. 7. Hypertension. 8. Diabetes mellitus type 2, insulin dependent. 9. Hypothyroidism. 10. Depression. 11. Gastroesophageal reflux disease. DISCONTINUED MEDICATIONS: Losartan/hydrochlorothiazide 50/12.5. DISCHARGE MEDICATIONS: 1. DuoNeb. 2. Nexium 40 mg p.o. daily. 3. Lasix 40 mg p.o. daily. 4. Guaifenesin-DM ER q.12 hours. 5. Humalog 2.2 units subcu q.1 hour, increase as needed with increase in blood sugars. 6. Synthroid 100 mcg p.o. daily. 7. Losartan/hydrochlorothiazide 100 mg/25 mg daily. 8. K-Dur 10 mEq p.o. daily. 9. Prednisone 40 mg p.o. for 2 more days. 10. Crestor 40 mg p.o. at bedtime. 11. Sertraline 100 mg p.o. daily. 12. Aspirin (new addition medication) 81 mg p.o. daily. 13. Combivent inhaler 2 puffs p.o. b.i.d. HISTORY OF PRESENT ILLNESS/HOSPITAL COURSE: Ms. Moreau is a 69-year-old female with a past medical history of JACKIE, recent bronchitis and hypertension, who came into the emergency department because of worsening respiratory status over the last two weeks with exertional dyspnea, as well as orthopnea. The patient states that she was not able to fill her CPAP machine from a summer diagnosis of her JACKIE due to some problems with the prescription. The patient was thought to have pulmonary hypertension worsened by JACKIE, but echo reading did not suggest so. The patient did have a little bit of diastolic dysfunction upon echocardiogram, but chest x-ray did not show any significant pulmonary effusion. White count was slightly elevated initially. Troponin was also elevated, was downtrended. BNP was not elevated at 18.3. ABG showed pO2 of 49.7, O2 of 63.3, AA gradient of 24, pH of 7.35. The patient was found to have lung pathology and was discharged with nebulizer machine, as well as nebulizer treatments as well as Combivent inhaler. Spoke with the patient's PCP, Dr. Napoles about racing the CPAP machine for patient's obstructive sleep apnea as this potentially could be causing her shortness of breath as well. The patient was also discharged on Mucinex DM, which helped a lot with her secretions and decreasing her cough. DISPOSITION: The patient was stable upon discharge, much improved respiratory status upon admission. DISCHARGE INSTRUCTIONS: 1. Location: Home. 2. Diet: Heart healthy and consistent carb. 3. Activity: As tolerated. 4. Followup: Follow up with Dr. Napoles at [facility] in 3-5 days. Job ID: [id number]
--- NOTE | 2019-07-18 09:28 | PQF ---
MARY JO ALVARADO JASON MD *r* [id number] [facility]-248 [id number] CLINICAL DOCUMENTATION CLARIFICATION FORM: POST DISCHARGE Addendum to original discharge summary date: ____ Late entry note date: __ DATE:07/18/2019 ATTN:MINDY PANTOJA MD Please exercise your independent, professional judgment in responding to the clarification form. Clinical indicators are provided on the bottom of this form for your review Please check appropriate box(s): HEART FAILURE: HFpEF ACUITY [ ] Acute [ ] Acute on Chronic [ ] Chronic [ X ] Other diagnosis __ruled out heart failure. she has diastolic dysfunction only [ ] Unable to determine In addition, please specify: Present on Admission (POA): [ X ] Yes [ ] No [ ] Unable to determine For continuity of documentation, please document condition throughout progress notes and discharge summary. Thank You. CLINICAL INDICATORS - SIGNS / SYMPTOMS / LABS SOB-Documented in ED on 07/14 by Miquel Shelton Pt clinically volume overloaded -Documented in Family medicine H&P on 07/16 by Shanelle Graff EF is visually estimated at 60-65%-Documented in ECHO HFpEF,Elevated troponin ,likely due to fluid overload-Documented in Family medicine PN on 07/17 by Shanelle Graff [id number] in Family medicine PN on 07/17 by Shanelle Graff Acute hypoxic respiratory failure-Documented in Family medicine PN on 07/17 by Shanelle Graff RISKS: CAD,HTN,DM-Documented in Family medicine H&P on 07/16 by Shanelle Graff Acute hypoxic respiratory failure-Documented in Family medicine PN on 07/17 by Shanelle Graff TREATMENTS: Given 20 IV Lasix in ED-Documented in Family medicine H&P on 07/16 by Shanelle Graff [facility] [facility] Reports Winform Viewer (This form is maintained as a part of the permanent medical record) 2014 [employer]. All Rights Reserved [email or web address] [not provided] AMANDA
--- NOTE | 2019-07-22 21:09 | EKG ---
Test Reason : Blood Pressure : / mmHG Vent. Rate : 102 BPM Atrial Rate : 102 BPM P-R Int : 114 ms QRS Dur : 080 ms QT Int : 348 ms P-R-T Axes : 085 036 -10 degrees QTc Int : 453 ms Sinus tachycardia Nonspecific ST and T wave abnormality Abnormal ECG Confirmed by HAILY HAAS ([id number]), online content editor SHANTE CLARK ([id number]) on 07/22/2019 9:07:38 PM Referred By: Confirmed By:HAILY HAAS
== END 2019-07-17 13:48 | disposition home or self-care (01) | DRG 189 ==
LOC: ERS 05:12 → 2SW 09:51 → OBSVTOIN 07-16 15:51
PROVIDERS: ADMIT Family Medicine; ATTEND Emergency Medicine
DX: J96.01 Acute respiratory failure with hypoxia (principal); J44.1 Chronic obstructive pulmonary disease with (acute) exacerbation; E03.9 Hypothyroidism, unspecified; G47.33 Obstructive sleep apnea (adult) (pediatric); I25.10 Atherosclerotic heart disease of native coronary artery without angina pectoris; E11.9 Type 2 diabetes mellitus without complications; K21.9 Gastro-esophageal reflux disease without esophagitis; I10 Essential (primary) hypertension; F32.9 Major depressive disorder, single episode, unspecified; Z79.4 Long term (current) use of insulin; Z87.891 Personal history of nicotine dependence; Z95.5 Presence of coronary angioplasty implant and graft; Z90.49 Acquired absence of other specified parts of digestive tract; Z90.710 Acquired absence of both cervix and uterus; Z98.51 Tubal ligation status
CPT/HCPCS: 36415; 36416; 71046; 80048; 80053; 82553; 82805; 83735; 83880; 84145; 84443; 84484; 85025; 87804; 93005; 93306; 94640; 94660; 96365; 96375; J1650; J1940; J2930; J3475; J7512; J7611; J7620

== ENCOUNTER 2019-08-16 05:27 | Observation (INO) | payer MEDICARE, MEDICAID ==
[2019-08-16 06:11] LABS: #Eosinphils 0.4 thou/uL (0.0-0.7); #Lymphocytes 2.6 thou/uL (1.20-3.40); #Monocytes 0.5 thou/uL (0.11-0.59); #Neutrophils 5.8 thou/uL (1.40-6.50); %Basophils 0.3 % (0.0-1.0); %Eosinophils 4.4 % (0.0-10.0); %Monocytes 4.9 % (0.0-10.0); %Neutrophils 62.5 % (42.0-75.0); Hemoglobin 12.1 g/dL (12.0-16.0); Mean Corpuscular HGB CONC 31.6 g/dL (32.0-36.0); Mean Corpuscular Hemoglobin 28.1 pg (27.0-31.0); Mean Platelet Volume 8.1 fL (7.4-10.4); Platelet Count 253 thou/uL (130-400); RBC Distribution Width 14.1 % (11.5-14.5); Red Blood Cell (RBC) Count 4.29 mill/uL (4.20-5.40); White Blood Cell (WBC) Count 9.3 thou/uL (4.8-10.8)
[2019-08-16] MEDS ORDERED: methylPREDNISolone Sod Succ/PF 125 MG/2 ML VIAL ONE (06:13)
[2019-08-16] MEDS ORDERED: Aspirin 81 mg Enteric Coated Tablet ONE (06:13)
[2019-08-16 06:17] LABS: PTT 29.4 SEC (22.9-36.1); Prothrombin Time 13.5 SEC (12.0-14.7)
[2019-08-16 06:35] LABS: ALT (SGPT) 10 U/L (8-55); AST (SGOT) 13 U/L (5-34); Albumin 4.2 g/dL (3.4-4.8); Alkaline Phosphatase 108 U/L (40-110); Anion Gap 15 mmol/L (10-20); BUN (Urea Nitrogen) 16 mg/dL (9.8-20.1); Bilirubin, Total 0.4 mg/dL (0.2-1.2); Calc. Creatinine Clearance 0 mL/min (70-130); Calcium 9.3 mg/dL (7.8-10.44); Carbon Dioxide 32 mmol/L (23-31); Chloride 102 mmol/L (98-107); Estimated GFR-MDRD 56; Glucose 170 mg/dL (80-115); Potassium 3.7 mmol/L (3.5-5.1); Protein, Total 7.2 g/dL (6.0-8.3); Sodium 145 mmol/L (136-145)
[2019-08-16] MEDS ORDERED: cloNIDine 0.1 MG TAB ONE (06:47)
--- NOTE | 2019-08-16 07:29 | PDOC.FPRHP ---
- History of Present Illness Chief Complaint: SOB History of Present Illness: 69 yo AA female with JACKIE, Obesity Hypoventilation Syndrome comes in w/ c/c of trouble breathing. Pt reports being SOB for the last 2 months. Pt came to ER last night because she couldn't breathe. Pt was recently discharged early in the month when she presented with the same symptoms. Pt states SOB has still been present since. Pt states gets SOB just getting up and going to the bathroom which is in her room. Reports chronic swelling in her legs. Pt reports having chest pain. Pt describes pain as "it acted amanda like it wanted to go to the left." Pt can't explain this chest pain in more details. Location of pain was in substernal area. Pt thought pain was from coughing. Pt reports having night sweats in past but wasn't sweating today. Pt reports subjective fever. Pt denies any nausea. Pt reports still coughing. Reports having sore throat from coughing so much. Reports nasal/sinus congestion ever since all this has started. Pt reports having oxygen, nebulizer and CPAP at home. Pt states using all of it and it didn't seem to be working. Pt reports she was told she had asthma. Pt reports tour director is Dr. Petersen and saw him back this summer. ED Course: Clonidine Duoneb ASA methylprednisolone - Allergies/Adverse Reactions Allergies Allergy/AdvReac Type Severity Reaction Status Date / Time levofloxacin [From Levaquin] Allergy Intermediate RASH, Verified 07/14/19 11:05 ITCHING codeine AdvReac Intermediate HALLUCINATI Verified 07/14/19 11:05 ONS - Home Medications Medication Instructions Recorded Confirmed Type Esomeprazole Magnesium [NexIUM] 40 mg PO DAILY 10/01/16 08/16/19 History Levothyroxine Sodium [Synthroid] 100 mcg PO DAILY 10/01/16 08/16/19 History Potassium Chloride [K-Dur] 10 meq PO DAILY 10/02/16 08/16/19 History HumaLOG [HumaLOG Vial] 2.2 unit SC Q1HR 07/14/19 08/16/19 History Rosuvastatin [Crestor] 40 mg PO HS 07/14/19 08/16/19 History Sertraline HCl 100 mg PO DAILY 07/14/19 08/16/19 History Nebulizer [Truneb Nebulizer] 1 each MC PRN PRN #1 each 07/16/19 08/16/19 Rx Aspirin [Ecotrin Low Strength] 81 mg PO DAILY tab 07/17/19 08/16/19 Rx Furosemide [Lasix] 40 mg PO 0900 tab 07/17/19 08/16/19 Rx Ipratropium/Albuterol Sulfate 3 ml NEB [id number] #30 neb 07/17/19 08/16/19 Rx [DuoNeb] Losartan/Hydrochlorothiazide 1 tab PO DAILY #30 tab 07/17/19 08/16/19 Rx [Hyzaar] guaiFENesin/DM ER [Mucinex DM] 1 tab PO Q12HR tab 07/17/19 08/16/19 Rx - History PMHx: 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 PSHx: BTL, hysterectomy, cholecystectomy, X3 hernia repair. FHx: Mother: CAD, RI; Father: RI, CAD, CVA. Brother- Cancer Social: 10 pack year cigarette, total of 20 years, 1/2 ppd, quit 15 years ago. Denies current etoh, or drug use. - Review of Systems General: reports: fever/chills, night sweats, fatigue. denies: weight/appetite/ sleep changes Eyes: denies: eye pain, vision changes ENT: reports: nasal congestion. denies: rhinorrhea Respiratory: reports: cough, congestion, shortness of breath, exercise intolerance Cardiovascular: reports: chest pain, edema (Reports chronic swelling in lower extremities.). denies: palpitation Gastrointestinal: denies: nausea, vomiting, diarrhea, constipation, abdominal pain Genitourinary: denies: incontinence, dysuria, polyuria Skin: denies: rashes Musculoskeletal: denies: pain, tenderness, stiffness, arthritis/arthralgias Neurological: reports: weakness. denies: numbness Psychological: denies: anxiety, depression - Vital signs BP: 161/78 HR: 98 RR: 20 Tmax: 98.5 Pox: 100% on RA Wt: 116 kg - Physical Exam Constitutional: NAD, awake, alert and oriented, well developed HEENT: normocephalic and atraumatic, PERRLA, EOMI, grossly normal vision, grossly normal hearing, MMM, other (poor dentition) Neck: FROM, trachea midline, no JVD Chest: other (tender to palpation but seperate from her described pain) Heart: RRR, normal S1/S2, no murmurs/rubs/gallops, pulses present Lungs: other (End expiratory wheezing) Abdomen: soft, non-tender, bowel sounds present, no masses/distention, other ( insulin pump present) Musculoskeletal: normal structure, normal tone, ROM grossly normal Neurological: no focal deficit, normal sensation Skin: no rash/lesions, good turgor, capillary refill <2 seconds Heme/Lymphatic: no unusual bruising or bleeding, no purpura Psychiatric: normal mood and affect, good judgment and insight FMR H&P: Results - Labs Result Diagrams: 08/16/19 06:00 08/16/19 06:00 Lab results: WBC 9.3 thou/uL (4.8-10.8) 08/16/19 06:00 Hgb 12.1 g/dL (12.0-16.0) 08/16/19 06:00 Hct 38.2 % (36.0-47.0) 08/16/19 06:00 MCV 89.0 fL (78.0-98.0) 08/16/19 06:00 Plt Count 253 thou/uL (130-400) 08/16/19 06:00 Neutrophils % 62.5 % (42.0-75.0) 08/16/19 06:00 Sodium 145 mmol/L (136-145) 08/16/19 06:00 Potassium 3.7 mmol/L (3.5-5.1) 08/16/19 06:00 Chloride 102 mmol/L (98-107) 08/16/19 06:00 Carbon Dioxide 32 mmol/L (23-31) H 08/16/19 06:00 BUN 16 mg/dL (9.8-20.1) 08/16/19 06:00 Creatinine 1.17 mg/dL (0.6-1.1) H 08/16/19 06:00 Glucose 170 mg/dL (80-115) H 08/16/19 06:00 Calcium 9.3 mg/dL (7.8-10.44) 08/16/19 06:00 Total Bilirubin 0.4 mg/dL (0.2-1.2) 08/16/19 06:00 AST 13 U/L (5-34) 08/16/19 06:00 ALT 10 U/L (8-55) 08/16/19 06:00 Alkaline Phosphatase 108 U/L (40-110) 08/16/19 06:00 B-Natriuretic Peptide 12.4 pg/mL (0-100) 08/16/19 06:00 Serum Total Protein 7.2 g/dL (6.0-8.3) 08/16/19 06:00 Albumin 4.2 g/dL (3.4-4.8) 08/16/19 06:00 - Radiology Interpretation Chest x-ray Status: image reviewed by me, pending (There appears to be some increased vasculature congestion, Heart enlarged. No sign of acute infectious process.) FMR H&P: A/P - Problem List (1) Acute respiratory failure with hypoxia Current Visit: No Status: Acute Code(s): J96.01 - ACUTE RESPIRATORY FAILURE WITH HYPOXIA (2) Chest pain Current Visit: No Status: Acute Code(s): R07.9 - CHEST PAIN, UNSPECIFIED (3) Diabetes mellitus, type II, insulin dependent Current Visit: No Status: Chronic Code(s): E11.9 - TYPE 2 DIABETES MELLITUS WITHOUT COMPLICATIONS; Z79.4 - FIBER WORKER (CURRENT) USE OF INSULIN (4) GERD (gastroesophageal reflux disease) Current Visit: No Status: Chronic Code(s): K21.9 - GASTRO-ESOPHAGEAL REFLUX DISEASE WITHOUT ESOPHAGITIS (5) HTN (hypertension) Current Visit: No Status: Chronic Code(s): I10 - ESSENTIAL (PRIMARY) HYPERTENSION (6) Hypothyroidism Current Visit: No Status: Chronic Code(s): E03.9 - HYPOTHYROIDISM, UNSPECIFIED (7) JACKIE (obstructive sleep apnea) Current Visit: No Status: Chronic Code(s): G47.33 - OBSTRUCTIVE SLEEP APNEA (ADULT) (PEDIATRIC) (8) Obesity hypoventilation syndrome Current Visit: No Status: Chronic Code(s): E66.2 - MORBID (SEVERE) OBESITY WITH ALVEOLAR HYPOVENTILATION - Plan This is a 69 yo female with a pmh of HTN, IDDM2, CAD s/p stenting, depression, PTSD, hypothyroidism, GERD Acute hypoxic respiratory failure -Likely 2/2 COPD vs asthma. Pt has no history of COPD but remote smoking history , obesity hypoventilation syndrome may be contributing -Admit to medical -Continue duonebs, steroids, and inhaled steroids on discharge -Starting doxycycline -Outpt pulmonology consult -Continue home bipap at night -Pt reports home o2 2.5L, sats at 100 off O2 in room -Pending procal Atypical chest pain -Admit to medical -Likely 2/2 coughing vs GERD -Pain is reproducible -Marburg score of 2 HTN -Continue home medications DM2 -Continue insulin pump -Mild SSI -check clinic EMR for last A1c, repeat if necessary CAD -Continue home meds Depression/PTSD -Continue home meds Hypothyroidism -Continue home levothyroxine -Recent TSH was normal GERD -Continue home omeprozole Code: Full Prophylaxis: lovenox, omeprozole Family: none at beside Fluids: SL Diet: CC 1999kc Disposition: DC in 1-2 days PCP: RENEE Skaggs FMR H&P: Upper Level - Plan Date/Time: 08/16/19 0858 I, [], have evaluated this patient and agree with findings/plan as outlined by sales management intern resident. Pertinent changes/additions are listed here. Addendum - Attending - Attending Attestation Date/Time: 08/16/19 5009 I personally evaluated the patient and discussed the management with Dr. Inman. I agree with the History, Examination, Assessment and Plan documented above with any addition or exceptions noted below. The patient presents with shortness of breath. She has acute hypoxic respiratory failure 2/2 copd exacerbation. Will give nebs, steroids, doxycycline. Wean o2 as able. Procal is engative. Chest xr doesn't show a definitive pneumonia. Chest pain is reproducible and CE negative x 2 so far. Will add inhaled corticosteroid. Pt has also complained of allergy symtpoms. Will try adding montelukast.
--- NOTE | 2019-08-16 08:52 | RAD ---
PORTABLE CHEST: Date: 08/16/19 HISTORY: Hypertension, chest pain. COMPARISON: 07/22/19 study. FINDINGS: Heart size within normal limits for portable technique. Mediastinal structures are unremarkable. Lung s are clear of any confluent infiltrative process. Slightly prominent interstitial changes in the rig ht lung. This may just be technique related. IMPRESSION: Slightly increased interstitial lung change in the right lung field. I think that this is largely tonie hnique related. No confluent infiltrative process seen. No signs of overt edema. POS: OFF
[2019-08-16] MEDS ORDERED: Acetaminophen 325 MG TAB PO PRN (09:24)
[2019-08-16] MEDS ORDERED: Dextrose 50% Abboject 50 ML SYRINGE SLOW IVP PRN (09:24)
[2019-08-16] MEDS ORDERED: Dextrose 5% in Water 1,000 ML IV PRN (09:24)
[2019-08-16] MEDS ORDERED: Insulin Regular 300 UNITS/3 ML VIAL SC PRN ×3 (09:24→21:43)
[2019-08-16] MEDS ORDERED: HumaLOG 300 UNITS/3 ML VIAL SC SCH (09:24)
[2019-08-16] MEDS ORDERED: Levothyroxine Sodium 100 MCG TAB PO SCH (10:00)
[2019-08-16] MEDS ORDERED: Enoxaparin Sodium 40 MG/0.4 ML SYRINGE SC SCH (10:00)
[2019-08-16] MEDS ORDERED: [UNRECOGNIZED DRUG - OTHER] SC SCH (10:00)
[2019-08-16] MEDS ORDERED: guaiFENesin/DM ER PO SCH (10:00)
[2019-08-16] MEDS ORDERED: Doxycycline 100 MG CAP PO SCH (10:00)
[2019-08-16] MEDS ORDERED: Benzonatate 100 MG CAP PO SCH (10:00)
[2019-08-16] MEDS ORDERED: Aspirin 81 mg Enteric Coated Tablet PO SCH (10:00)
[2019-08-16] MEDS ORDERED: Losartan/Hydrochlorothiazide 100 mg/25 mg Tablet PO SCH (10:00)
[2019-08-16] MEDS ORDERED: predniSONE 20 MG TAB PO SCH (10:00)
[2019-08-16] MEDS ORDERED: Potassium Chloride 10 MEQ TAB PO SCH (10:00)
[2019-08-16] MEDS ORDERED: Furosemide 40 MG TAB PO SCH (10:00)
[2019-08-16 10:11] LABS: Troponin I Less than 0.010 ng/mL (< 0.028)
[2019-08-16 11:32] VITALS: BMI 44.8
[2019-08-16] MEDS: Benzonatate 100 MG CAP PO SCH ×2 (15:17→20:13)
[2019-08-16] MEDS: Doxycycline 100 MG CAP PO SCH (20:13)
[2019-08-16] MEDS: guaiFENesin/DM ER PO SCH (20:13)
[2019-08-16] MEDS ORDERED: Rosuvastatin 20 MG TAB PO SCH (21:00)
[2019-08-16] MEDS ORDERED: Montelukast Sodium 10 mg Tablet PO SCH (21:00)
[2019-08-16] MEDS ORDERED: Fluticasone Propionate HFA 110 MCG AER INH SCH (21:00)
--- NOTE | 2019-08-17 05:59 | PDOC.FM ---
- Subjective Subjective: She says her breathing is much improved from yesterday. She says she has no pain and is doing well. - Objective MAR Reviewed: Yes Vital Signs & Weight: Vital Signs (12 hours) Temp Pulse Resp BP BP Pulse Ox 08/17/19 04:00 98.0 F 55 L 20 157/64 H 98 08/17/19 01:39 83 16 91 L 08/16/19 23:58 98.7 F 83 20 172/69 H 92 L 08/16/19 22:28 92 L 08/16/19 20:00 97.8 F 69 20 163/61 H 92 L 08/16/19 19:20 7 L 12 Weight Weight 122.152 kg I&O: 08/15/19 08/16/19 08/17/19 06:59 06:59 06:59 Intake Total 730 Balance 730 Result Diagrams: 08/17/19 05:48 08/17/19 05:48 Phys Exam - Physical Examination Constitutional: NAD HEENT: PERRLA, moist MMs, oral pharynx no lesions Neck: supple, full ROM slight end expiratory wheeze on front of chest Cardiovascular: RRR, no significant murmur Gastrointestinal: soft, non-tender, positive bowel sounds Musculoskeletal: no edema, pulses present Neurological: moves all 4 limbs Psychiatric: normal affect Dx/Plan (1) Diabetes mellitus, type II, insulin dependent Code(s): E11.9 - TYPE 2 DIABETES MELLITUS WITHOUT COMPLICATIONS; Z79.4 - MARKETING BUDGET ANALYST (CURRENT) USE OF INSULIN Status: Chronic (2) HTN (hypertension) Code(s): I10 - ESSENTIAL (PRIMARY) HYPERTENSION Status: Chronic (3) JACKIE (obstructive sleep apnea) Code(s): G47.33 - OBSTRUCTIVE SLEEP APNEA (ADULT) (PEDIATRIC) Status: Chronic (4) Acute respiratory failure with hypoxia Code(s): J96.01 - ACUTE RESPIRATORY FAILURE WITH HYPOXIA Status: Acute (5) Chest pain Code(s): R07.9 - CHEST PAIN, UNSPECIFIED Status: Acute (6) GERD (gastroesophageal reflux disease) Code(s): K21.9 - GASTRO-ESOPHAGEAL REFLUX DISEASE WITHOUT ESOPHAGITIS Status: Chronic (7) Hypothyroidism Code(s): E03.9 - HYPOTHYROIDISM, UNSPECIFIED Status: Chronic - Plan Plan: This is a 69 yo female with a pmh of HTN, IDDM2, CAD s/p stenting, depression, PTSD, hypothyroidism, GERD 69 yo AA female with JACKIE, Obesity Hypoventilation Syndrome comes in w/ c/c of trouble breathing. Pt reports being SOB for the last 2 months. 1. Acute hypoxic respiratory failure * Likely 2/2 COPD vs asthma. Pt has no history of COPD but remote smoking history, obesity hypoventilation syndrome may be contributing * Continue duonebs, steroids, and fluticasone INH * CXR: NAF * Started Doxycycline- 08/16 * Outpt pulmonology consult * Continue home bipap at night * Pt reports home o2 2.5L, sats at 100 off O2 in room * Procal: 0.05 2. Atypical chest pain Trop: 0.019 > < 0.01 * Likely 2/2 coughing vs GERD; Pain is reproducible on palpation * Marburg score of 2 3. HTN * Continue Hyzaar * Consider adding Norvasc 4. DM2 * Continue insulin pump- Will get total pt is administering for adjustment of SSI * Moderate SSI * Check clinic EMR for last A1c, repeat if necessary 5. CAD * Continue Hyzaar 6. Depression/PTSD * Continue home meds 7. Hypothyroidism * Continue home levothyroxine * Recent TSH was normal 8. GERD * Continue home omeprozole Code: Full Prophylaxis: lovenox, omeprozole Family: none at beside Fluids: SL Diet: CC 2000kcal Disposition: DC in 1-2 days PCP: RENEE Skaggs Dispo: Medical Obs, LOS < 48H. Will work with PT/OT today and get recs on placement. Addendum - Attending - Attending Attestation Date/Time: 08/17/19 1001 I personally evaluated the patient and discussed the management with Dr. Mcgovern. I agree with the History, Examination, Assessment and Plan documented above with any addition or exceptions noted below. the patient is back to baseline oxygen level. therapy will eval. Breathing is improved since adding new inhaler and montelukast. Pt may d/c this afternoon if she remains stable. She would benefit from pulmonary rehab.
[2019-08-17] MEDS ORDERED: Levothyroxine Sodium 100 MCG TAB PO SCH (06:00)
[2019-08-17 06:14] LABS: #Lymphocytes 1.6 thou/uL (1.20-3.40); #Monocytes 0.8 thou/uL (0.11-0.59); %Basophils 0.1 % (0.0-1.0); %Eosinophils 0.1 % (0.0-10.0); %Lymphocytes 15.3 % (21.0-51.0); %Monocytes 7.8 % (0.0-10.0); %Neutrophils 76.7 % (42.0-75.0); Hemoglobin 11.1 g/dL (12.0-16.0); Mean Corpuscular HGB CONC 31.5 g/dL (32.0-36.0); Mean Corpuscular Hemoglobin 27.7 pg (27.0-31.0); Mean Platelet Volume 8.6 fL (7.4-10.4); Platelet Count 235 thou/uL (130-400); RBC Distribution Width 13.9 % (11.5-14.5); Red Blood Cell (RBC) Count 3.99 mill/uL (4.20-5.40); White Blood Cell (WBC) Count 10.5 thou/uL (4.8-10.8)
[2019-08-17 06:36] LABS: Anion Gap 12 mmol/L (10-20); BUN (Urea Nitrogen) 19 mg/dL (9.8-20.1); Calc. Creatinine Clearance 98 mL/min (70-130); Carbon Dioxide 31 mmol/L (23-31); Chloride 101 mmol/L (98-107); Estimated GFR-MDRD 62; Glucose 227 mg/dL (80-115); Potassium 3.6 mmol/L (3.5-5.1); Sodium 140 mmol/L (136-145)
[2019-08-17] MEDS ORDERED: Mometasone 100 MCG HFA INHALER INH SCH ×2 (07:15→18:30)
[2019-08-17] MEDS: guaiFENesin/DM ER PO SCH (08:22)
[2019-08-17] MEDS: Benzonatate 100 MG CAP PO SCH (08:24)
[2019-08-17] MEDS: Doxycycline 100 MG CAP PO SCH (08:24)
[2019-08-17] MEDS ORDERED: Enoxaparin Sodium 40 MG/0.4 ML SYRINGE SC SCH (09:00)
[2019-08-17] MEDS ORDERED: predniSONE 20 MG TAB PO SCH (09:00)
[2019-08-17] MEDS ORDERED: Losartan/Hydrochlorothiazide 100 mg/25 mg Tablet PO SCH (09:00)
[2019-08-17] MEDS ORDERED: Potassium Chloride 10 MEQ TAB PO SCH (09:00)
[2019-08-17] MEDS ORDERED: Aspirin 81 mg Enteric Coated Tablet PO SCH (09:00)
[2019-08-17] MEDS ORDERED: Furosemide 40 MG TAB PO SCH (09:00)
[2019-08-17 11:35] VITALS: BP 163/74; TEMP 98.3
--- NOTE | 2019-08-21 11:59 | DIS ---
DATE OF ADMISSION: 08/16/2019 DATE OF DISCHARGE: 08/17/2019 RESIDENT: Tripp Mcgovern MD ADMITTING ATTENDING: Saranya Ling MD DISCHARGE ATTENDING: Saranya Ling MD CONSULTS: None. PROCEDURES: Chest x-ray on 08/16 shows slightly increased interstitial lung change in the right lung field largely due to technique. No infiltrative process seen. No signs of overt edema. PRIMARY DIAGNOSES: 1. Acute hypoxic respiratory failure secondary to chronic obstructive pulmonary disease. 2. Atypical chest pain. SECONDARY DIAGNOSES: 1. Hypertension. 2. Diabetes type 2. 3. Coronary artery disease. 4. Depression. 5. Posttraumatic stress disorder. 6. Hypothyroidism. 7. Gastroesophageal reflux disease. DISCHARGE MEDICATIONS: 1. Doxycycline 100 mg p.o. b.i.d. for 6 days. 2. Mometasone 100 mcg 1 puff b.i.d. for 30 days. 3. Singulair 10 mg p.o. q.p.m. 4. Prednisone 40 mg p.o. daily for 4 days. DISCONTINUED MEDICATIONS: DuoNeb nebulizer. HISTORY OF PRESENT ILLNESS/HOSPITAL COURSE: The patient is a 69-year-old female with obstructive sleep apnea, obesity, hypoventilation syndrome, comes in with complaint of trouble breathing. The patient reports being short of breath for the last 2 months. The patient came to the ER last night because she could not breathe. The patient was recently discharged earlier in the month when she presented with the same symptoms. The patient states shortness of breath has still been present since. The patient states she gets short of breath just getting up and going to the bathroom, which is in her room. Reports chronic swelling in her legs. The patient reports having chest pain. The patient describes pain like it wanted to go to the left. The patient cannot explain this chest pain and more details. Location of the pain was in the substernal region. The patient reports pain was from coughing. The patient reports having night sweats in the past, but was not sweating today. The patient reports subjective fever. The patient denies any nausea. The patient reports still coughing. She reports having sore throat from coughing so much. Reports nasal sinus congestion ever since this has started. The patient reports having oxygen nebulizer and CPAP at home. The patient states she is using all of that and did not seem to be working. The patient reports she was told she had asthma. The patient reports customer relations coordinator is Dr. Petersen and saw him back in summer. In the ED, she was given clonidine, DuoNeb, aspirin, and methylprednisolone. 1. Acute hypoxic respiratory failure. a. Has no history of chronic obstructive pulmonary disease, but with no smoking history, obesity hypoventilation syndrome may be contributing. b. Continue DuoNeb, steroids, and fluticasone inhaler. c. Chest x-ray, no acute findings. d. Started doxycycline. e. Outpatient pulmonology consult order was put in by PCP. f. Continue home BiPAP at night. g. The patient reports home O2 use of 2.5 L, saturations at 100% on room air. h. Procalcitonin 0.05. 2. Atypical chest pain. a. Troponin negative x2. b. Likely secondary to coughing versus gastroesophageal reflux disease. Pain is reproducible on palpation. 3. Hypertension. a. Continue Hyzaar. Consider adding Norvasc. 4. Diabetes type 2. a. Continue insulin pump. b. Moderate sliding scale insulin. 5. Coronary artery disease. a. Continue Hyzaar. 6. Depression, posttraumatic stress disorder. a. Continue home medications. 7. Hypothyroidism. a. Continue home levothyroxine. b. Recent TSH was normal. 8. Gastroesophageal reflux disease. a. Continue home omeprazole. DISPOSITION: Stable. DISCHARGE INSTRUCTIONS: 1. Location: Home. 2. Diet: Diabetic. 3. Activity: As tolerated. 4. Follow up with Dr. Sofia Napoles in 7 days of discharge. The patient was told to call [facility] for pulmonary rehab and pulmonology referrals, so she could follow up with them closely. Job ID: [id number] [facility]
== END 2019-08-17 15:14 | disposition home or self-care (01) ==
LOC: ERS 05:27 → T4-B 09:02
PROVIDERS: ADMIT Family Medicine; ATTEND Family Medicine
DX: J44.1 Chronic obstructive pulmonary disease with (acute) exacerbation (principal); J96.01 Acute respiratory failure with hypoxia; R07.89 Other chest pain; E11.9 Type 2 diabetes mellitus without complications; K21.9 Gastro-esophageal reflux disease without esophagitis; I10 Essential (primary) hypertension; E03.9 Hypothyroidism, unspecified; I25.10 Atherosclerotic heart disease of native coronary artery without angina pectoris; F43.10 Post-traumatic stress disorder, unspecified; F32.9 Major depressive disorder, single episode, unspecified; E66.2 Morbid (severe) obesity with alveolar hypoventilation; Z68.41 Body mass index [BMI] 40.0-44.9, adult; Z87.891 Personal history of nicotine dependence; Z79.4 Long term (current) use of insulin; Z79.82 Long term (current) use of aspirin; Z79.899 Other long term (current) drug therapy; Z88.1 Allergy status to other antibiotic agents; Z88.5 Allergy status to narcotic agent; Z95.5 Presence of coronary angioplasty implant and graft; Z96.41 Presence of insulin pump (external) (internal); Z99.89 Dependence on other enabling machines and devices
CPT/HCPCS: 36415; 36416; 71045; 80048; 80053; 83880; 84145; 84484; 85025; 85610; 85730; 93005; 94640; 94644; 96372; 96374; G0378; J1650; J1815; J2930; J7512; J7620

== ENCOUNTER 2020-12-21 22:58 | Emergency (ER) | payer MEDICARE, OTHER ==
[2020-12-22] MEDS ORDERED: Ketorolac Tromethamine 30 MG/ML VIAL ONE (00:37)
== END 2020-12-22 01:10 | disposition home or self-care (01) ==
LOC: ERS 22:58
DX: M79.671 Pain in right foot (principal); M79.89 Other specified soft tissue disorders; E11.9 Type 2 diabetes mellitus without complications; I11.0 Hypertensive heart disease with heart failure; I50.9 Heart failure, unspecified
CPT/HCPCS: 96372; J1885

== ENCOUNTER 2022-02-16 10:26 | Outpatient (CLI) | payer MEDICARE, OTHER | END 2022-02-16 10:27 | disposition home or self-care (01) | LOC: BICMRI 10:26 | PROVIDERS: ATTEND Nurse Practitioner Family | DX: M54.41 Lumbago with sciatica, right side (principal); M54.42 Lumbago with sciatica, left side; G89.29 Other chronic pain; M47.816 Spondylosis without myelopathy or radiculopathy, lumbar region | CPT/HCPCS: 72148 ==